=== PATIENT | male | born 1950 | race Caucasian/White ===

== ENCOUNTER 2022-06-27 16:17 | Emergency (ER) | payer MEDICARE, MEDICAID, SELFPAY ==
[2022-06-27] VITALS (17 sets, daily range): BP systolic 84–115; BP diastolic 50–76; PULSE 84–98; RESP 12–33; TEMP 36.1; O2SAT 95–99; BMI 28.0
--- NOTE | 2022-06-27 16:39 | DI.RAD.S_ITS ---
PROCEDURE: XR CHEST 1V INDICATIONS: chest pain TECHNIQUE: One view of the chest was acquired. COMPARISON: None. FINDINGS: Surgical changes and devices: None. Lungs and pleura: On this semiupright portable chest examination, no large pneumothorax or large pleural effusions are seen. No focal infiltrates are seen. Low lung volumes are noted. This causes a crowded appearance to the lung markings and limits evaluation. Mediastinum: Mediastinal contours appear normal. Heart size is normal. Atherosclerotic calcification of the aortic arch is noted. Bones and chest wall: No suspicious bony lesions. Age-appropriate bony degenerative changes are seen. Overlying soft tissues appear unremarkable. IMPRESSION: Low lung volumes, without an acute abnormality identified. Dictated by: Michael Centeno M.D. on 06/27/2022 at 16:05 Approved by: Michael Centeno M.D. on 06/27/2022 at 16:05
--- NOTE | 2022-06-27 16:39 | DI.CT.S_ITS ---
PROCEDURE: CT ANGIO HEAD AND NECK INDICATIONS: dizzy TECHNIQUE: Noncontrast images were performed earlier in the day and not repeated. After the administration of intravenous contrast, 1 mm thick sections acquired from the aortic arch through the [place]. Post-contrast 4.5 mm thick sections then re-acquired from the foramen magnum to the vertex. 3-dimensional cfqsfpk-xoyuawkvb-uthkfktcuq (MIP) and/or volume rendering reformats were acquired of the central intracranial vasculature and neck separately. For radiation dose reduction, the following was used: automated exposure control, adjustment of mA and/or kV according to patient size. COMPARISON: [facility], CT, CT HEAD/BRAIN WO CON, 06/27/2022, 16:44. [facility], CR, XR CHEST 1V, 06/27/2022, 16:39. FINDINGS: Image quality: Excellent. BRAIN: CSF spaces: Ventricles are normal in size and shape. Basal cisterns are patent. No extra-axial fluid collections. Brain: No midline shift. No intracranial bleeds or masses. Ravi-white matter interface appears intact. Skull and face: Calvarium and facial bones appear intact, without suspicious lesions. Orbits appear normal. Sinuses: Sinuses and mastoids are clear. HEAD CT ANGIOGRAPHY: Anterior circulation: Intracranial internal carotid arteries are normal in size and flow. The flow within the paired anterior cerebral arteries is normal and symmetric. The flow within the middle cerebral arteries is normal and symmetric. The anterior communicating artery is seen. No aneurysms are seen. Posterior circulation: Note is made of bilateral type origins of the posterior cerebral arteries, with an associated diminutive basilar artery. The flow within the posterior cerebral arteries is normal and symmetric. The left V4 segment is within normal limits. The right V4 segment largely terminates in the right posterior inferior cerebellar artery. No aneurysms are seen. NECK CT ANGIOGRAPHY: Carotid system: The great vessels demonstrate a conventional anatomy as they arise from the aortic arch. The origins of the common carotid arteries appear patent. The common carotid arteries demonstrate normal caliber and courses. The bifurcation regions demonstrate atherosclerotic irregularity and calcification, with 50-60% narrowing seen on each side. The more distal internal carotid arteries demonstrate normal course and caliber. Posterior circulation: The origins of the vertebral arteries both appear widely patent. The more superior extracranial portions of both vertebral arteries also demonstrate normal courses and calibers. They join to form a normal appearing basilar artery. Soft tissues: Visualized neck soft tissues demonstrate no suspicious abnormalities. Bones: No suspicious bony lesions. Visualized cervical spine appears normally aligned. At least moderate cervical spine degenerative change can be seen, with moderate to severe disc space narrowing at C5-C6 and C6-C7, with milder degenerative changes seen elsewhere. IMPRESSION: No acute abnormality is identified. Focal calcification can be seen involving the carotid bifurcation regions, with 50-60% narrowing seen on each side. Additional findings: Ggtmxn-iv-Kktwdf developmental anomalies At least moderate cervical spine degenerative change Any quantitative measurements of stenosis were performed using NASCET criteria. Dictated by: Michael Centeno M.D. on 06/27/2022 at 16:10 Approved by: Michael Centeno M.D. on 06/27/2022 at 16:13
--- NOTE | 2022-06-27 16:39 | DI.CT.S_ITS ---
PROCEDURE: CT HEAD/BRAIN WO CON INDICATIONS: dizzy TECHNIQUE: Noncontrast 4.5 mm thick angled axial sections acquired from the foramen magnum to the vertex, with coronal and sagittal reformats. For radiation dose reduction, the following was used: automated exposure control, adjustment of mA and/or kV according to patient size. COMPARISON: [facility], CT, CT ANGIO HEAD AND NECK, 06/27/2022, 16:44. [facility], CR, XR CHEST 1V, 06/27/2022, 16:39. FINDINGS: Image quality: Mild streak artifact can be seen through the skull base. CSF spaces: Basal cisterns are patent. No extra-axial fluid collections. The ventricles are symmetric in size and shape. Brain: No intracranial bleeds or masses. There is cerebral volume loss for age, with resultant ventricular and sulcal prominence. There are periventricular and deep white matter chronic small vessel ischemic changes. There is intracranial internal carotid artery atherosclerosis. Skull and face: Calvarium and visualized facial bones appear intact, without suspicious lesions. Sinuses: Visualized sinuses and mastoids are clear. IMPRESSION: Noncontrast head CT within normal limits for age, without a cause of dizziness observed. Dictated by: Michael Centeno M.D. on 06/27/2022 at 16:08 Approved by: Michael Centeno M.D. on 06/27/2022 at 16:09
[2022-06-27] MEDS: SODIUM CHLORIDE 0.9% 1,000 ML 1000 ML IV ×2 (16:42→18:18)
[2022-06-27 16:52] LABS: Add Manual Diff / Slide Review NO; Basophils Absolute Auto 100 /uL (0-100); Eosinophils Absolute Auto 200 /uL (0-450); Eosinophils Percent Auto 2.1 % (2-4); Hematocrit 34.3 % (41-53); Hemoglobin 11.5 g/dL (13.5-17.5); Lymphocytes Absolute Auto 2500 /uL (1100-4500); Lymphocytes Percent Auto 28.4 % (25-40); Mean Corpuscular HGB Conc 33.5 % (30-36); Mean Corpuscular Hemoglobin 29.4 PG (26-34); Mean Corpuscular Volume 87.6 fL (80-100); Monocytes Absolute Auto 800 /uL (0-900); Monocytes Percent Auto 9.1 % (3-14); Neutrophils Absolute Auto 5100 /uL (1500-7000); Neutrophils Percent Auto 59.4 % (50-75); Platelet Count 256 X10^3/uL (150-400); Red Blood Cell Count 3.92 X10^6/uL (4.5-5.9); Red Cell Distribution Width 15.4 % (11.6-14.8); White Blood Cell Count 8.6 X10^3/uL (4.5-11.0)
[2022-06-27 16:55] LABS: INR 1.2 (0.9-1.3); Prothrombin Time 13.3 SECONDS (10.1-12.7)
[2022-06-27 16:58] LABS: PTT Partial Thromboplastin Tim 31 SECONDS (26-36)
[2022-06-27 17:02] LABS: HEMOLYSIS < 15 (0-50)
[2022-06-27 17:03] LABS: Alanine Aminotransferase 44 IU/L (<50); Albumin 3.9 g/dL (3.5-5.0); Alkaline Phosphatase 131 U/L (38-126); Aspartate Aminotransferase 40 IU/L (17-59); BUN Creatinine Ratio 12.7 (6-22); Bilirubin Total 0.4 mg/dL (0.2-1.3); Blood Urea Nitrogen 20 mg/dL (9-20); Calcium 8.9 mg/dL (8.4-10.2); Carbon Dioxide 24 mmol/L (22-32); Chloride 91 mmol/L (98-107); Creatine Kinase 50 U/L (55-170); Estimated Glomerular Filt Rate 47 mL/min (>60); Ethanol (ETOH) < 10 mg/dL; Globulin 3.9 g/dL (1.7-4.1); Glucose 441 mg/dL (80-110); Lipase 161 U/L (23-300); Magnesium 1.4 mg/dL (1.6-2.3); Sodium 128 mmol/L (137-145); Total Protein 7.8 g/dL (6.3-8.2)
[2022-06-27 17:07] LABS: COVID19 -Nasal RAPID Negative (Negative)
[2022-06-27 17:14] LABS: Troponin I 0.024 ng/mL (0.01-0.034)
--- NOTE | 2022-06-27 17:26 | ED_ITS ---
HPI - Syncope General Chief Complaint: Dizziness Stated Complaint: Dizziness, blurred vision, weakness Time Seen by Provider: 06/27/22 16:39 Source: patient and family Mode of arrival: Family Vehicle Limitations: no limitations History of Present Illness HPI narrative: Patient is a 72-year-old male history of diabetes, coronary artery disease on Eliquis, hypertension, chronic neck pain presenting today after near syncopal episode and severe neck pain. He was at a birthday constitution party at a pizza place when he had sudden onset of neck spasming he says the only way to get neck to stop his if he lays flat and waits for it to release. So he laid on the floor in the restaurant. However when he got up he was feeling like he could not see and was a little lightheaded. He was driven here by POV initially found to be slightly hypotensive. He has no focal deficits he is making jokes. He is no chest pain palpitations or shortness of breath. Still complaining of some mild neck pain. No blurry vision. Daughter at bedside she reports that recently a lot of his medications were changed at his most recent PCP office. This week he is not felt quite right but she thought it was getting use to new medications and doses. He apparently had some sort of cardiac event in the fall he was seen evaluated by cardiology who reports that there is nothing for them to do. So he is on Eliquis. Related Data Allergies Allergy/AdvReac Type Severity Reaction Status Date / Time No Known Drug Allergies Allergy Verified 06/27/22 16:39 Review of Systems Review of Systems ROS Unobtainable: All systems reviewed & are unremarkable except as noted in HPI and below Patient History Social History Smoking Status: Former smoker Smoking Status: Former smoker tobacco type: cigarettes alcohol intake frequency: 0-2 drinks per day Substance Use Type: does not use Exam Initial Vital Signs Initial Vital Signs: Vital Signs Temperature 97.0 F L 06/27/22 16:31 Pulse Rate 91 H 06/27/22 16:31 Respiratory Rate 20 06/27/22 16:31 Blood Pressure 84/52 L 06/27/22 16:31 Pulse Oximetry 96 06/27/22 16:31 Oxygen Delivery Method Room Air 06/27/22 16:31 GENERAL: Alert pleasant 72-year-old male and in no acute distress. HEENT: Head atraumatic,EOMI, pupils reactive, face symmetric, moist mucous membranes CARDIOVASCULAR: Regular rate and rhythm without murmurs, rubs or gallops. RESPIRATORY: Breath sounds equal bilaterally, no wheezes rales or rhonchi. ABDOMEN: Soft, nontender. Normoactive bowel sounds all 4 quadrants. No guarding or rebound. EXTREMITIES: Normal range of motion, no clubbing or edema. Neurovascularly intact NEUROLOGICAL: Alert and oriented x4.Normal gait and speech. Cranial nerves II through XII grossly intact. Good htwhzu-ul-cmpg, good yyle-bf-odig, strength equal bilaterally, no dysarthria or aphasia, sensation in tact to soft touch bilaterally, no visual changes, no facial droop SKIN: Warm, dry, no laceration, no petechiae, no rashes or lesions. Scores NIH Stroke Scale Level of Conciousness: Alert, keenly responsive Ask month/age: Answers both questions correctly. Open/close eyes, close hand: Performs both tasks correctly Best gaze horizontal: Normal Visual fernandez: No visual loss Facial palsy: Normal symetrical movement Left arm drift: No drift for full 10 sec Right arm drift: No drift for full 10 sec Left leg drift: No drift for full 5 sec Right leg drift: No drift for full 5 sec Limb ataxia: Absent Sensory on face/arms/legs: Normal, no sensory loss Best language: No aphasia, normal Dysarthria: Normal Extinction or inattention: No abnormality Total NIH Stroke scale score: 0 Course Orders Ordered: ED Orders 06/27/22 16:39 CT angio head and neck Stat CT head/brain wo con Stat XR chest 1V Stat 06/27/22 16:40 COVID19 -Nasal RAPID Stat COVID19 -Nasal RAPID Stat Complete Blood Count AUTO DIFF Stat Comprehensive Metabolic Panel Stat Ethanol (ETOH) Stat Lipase Stat Magnesium Stat PTT Partial Thromboplastin Devendra Stat Prothrombin Time INR Stat Troponin & CK Cardiac Panel Stat Urinalysis and Microscopic Stat Urine Drug Screen, Rapid Stat 06/27/22 16:42 EKG-12 Lead Stat 06/27/22 18:40 Trop I [Troponin I] Stat Discontinued Medications Aspirin (Aspirin 81 Mg Chew Tab) 324 mg PO NOW ONE Stop: 06/27/22 16:40 Last Admin: 06/27/22 16:42 Dose: Not Given Documented By: CTS Sodium Chloride (Normal Saline 0.9%) 1,000 mls @ 1,000 mls/hr IV BOLUS ONE Stop: 06/27/22 17:38 Last Infusion: 06/27/22 18:18 Dose: 0 mls/hr Documented By: Admin: 06/27/22 16:42 Dose: 1,000 mls/hr Documented By: RICCO Sodium Chloride (Normal Saline 0.9%) 1,000 mls @ 1,000 mls/hr IV BOLUS ONE Stop: 06/27/22 19:09 Last Admin: 06/27/22 18:18 Dose: 1,000 mls/hr Documented By: DARRYL Vital Signs Vital signs: Vital Signs - 8 hr 06/27/22 16:31 06/27/22 16:41 06/27/22 16:31 Temperature 97.0 F L Pulse Rate 91 H 90 95 H Respiratory Rate 20 16 Blood Pressure 84/52 L 92/50 L Pulse Oximetry 96 95 96 Oxygen Delivery Method Room Air Room Air 06/27/22 16:33 06/27/22 16:33 06/27/22 16:35 Temperature Pulse Rate 91 H Respiratory Rate 26 H Blood Pressure 84/52 L 92/50 L Pulse Oximetry 95 Oxygen Delivery Method 06/27/22 16:35 06/27/22 16:45 06/27/22 16:45 Temperature Pulse Rate 92 H 90 Respiratory Rate 25 H 26 H Blood Pressure 101/52 L Pulse Oximetry 95 96 Oxygen Delivery Method 06/27/22 16:59 06/27/22 16:59 06/27/22 17:00 Temperature Pulse Rate 94 H Respiratory Rate 15 Blood Pressure 96/50 L 95/53 L Pulse Oximetry 97 Oxygen Delivery Method 06/27/22 17:00 06/27/22 17:15 06/27/22 17:15 Temperature Pulse Rate 91 H 90 Respiratory Rate 12 26 H Blood Pressure 95/56 L Pulse Oximetry 99 99 Oxygen Delivery Method 06/27/22 17:30 06/27/22 17:30 06/27/22 17:45 Temperature Pulse Rate 88 89 Respiratory Rate 22 28 H Blood Pressure 100/58 L Pulse Oximetry 96 97 Oxygen Delivery Method 06/27/22 17:45 06/27/22 18:00 06/27/22 18:00 Temperature Pulse Rate 92 H Respiratory Rate 26 H Blood Pressure 105/59 L 115/76 Pulse Oximetry 99 Oxygen Delivery Method 06/27/22 18:15 06/27/22 18:15 Temperature Pulse Rate 87 Respiratory Rate 24 Blood Pressure 108/64 Pulse Oximetry 98 Oxygen Delivery Method MDM - Syncope Lab Data 06/27/22 16:40 06/27/22 16:40 Labs: Lab Results 06/27/22 06/27/22 06/27/22 Range/Units 16:40 16:40 16:40 WBC 8.6 (4.5-11.0) X10^3/uL RBC 3.92 L (4.5-5.9) X10^6/uL Hgb 11.5 L (13.5-17.5) g/dL Hct 34.3 L (41-53) % MCV 87.6 (80-100) fL MCH 29.4 (26-34) PG MCHC 33.5 (30-36) % RDW 15.4 H (11.6-14.8) % Plt Count 256 (150-400) X10^3/uL Neut % (Auto) 59.4 (50-75) % Lymph % (Auto) 28.4 (25-40) % [place] % (Auto) 9.1 (3-14) % Eos % (Auto) 2.1 (2-4) % Baso % (Auto) 1.0 (0-2) % Neut # (Auto) 5100 (6706-0231) /uL Lymph # (Auto) 2500 (2764-8691) /uL [place] # (Auto) 800 (0-900) /uL Eos # (Auto) 200 (0-450) /uL Baso # (Auto) 100 (0-100) /uL PT 13.3 H (10.1-12.7) SECONDS INR 1.2 (0.9-1.3) APTT 31 (26-36) SECONDS Sodium (137-145) mmol/L Potassium (3.4-5.1) mmol/L Chloride (98-107) mmol/L Carbon Dioxide (22-32) mmol/L BUN (9-20) mg/dL Creatinine (0.66-1.25) mg/dL Estimated GFR (>60) mL/min BUN/Creatinine Ratio (6-22) Glucose (80-110) mg/dL Calcium (8.4-10.2) mg/dL Magnesium (1.6-2.3) mg/dL Total Bilirubin (0.2-1.3) mg/dL AST (17-59) IU/L ALT (<50) IU/L Alkaline Phosphatase (38-126) U/L Total Creatine Kinase (55-170) U/L CK-MB (CK-2) CK-MB (CK-2) Rel Index Troponin I (0.01-0.034) ng/mL Total Protein (6.3-8.2) g/dL Albumin (3.5-5.0) g/dL Globulin (1.7-4.1) g/dL Albumin/Globulin Ratio (1.0-2.8) Lipase (23-300) U/L Ethyl Alcohol ( - 10) mg/dL SARS-CoV-2 (PCR) Negative (Negative) 06/27/22 06/27/22 Range/Units 16:40 18:40 WBC (4.5-11.0) X10^3/uL RBC (4.5-5.9) X10^6/uL Hgb (13.5-17.5) g/dL Hct (41-53) % MCV (80-100) fL MCH (26-34) PG MCHC (30-36) % RDW (11.6-14.8) % Plt Count (150-400) X10^3/uL Neut % (Auto) (50-75) % Lymph % (Auto) (25-40) % [place] % (Auto) (3-14) % Eos % (Auto) (2-4) % Baso % (Auto) (0-2) % Neut # (Auto) (7816-1260) /uL Lymph # (Auto) (5613-9797) /uL [place] # (Auto) (0-900) /uL Eos # (Auto) (0-450) /uL Baso # (Auto) (0-100) /uL PT (10.1-12.7) SECONDS INR (0.9-1.3) APTT (26-36) SECONDS Sodium 128 L (137-145) mmol/L Potassium 5.0 (3.4-5.1) mmol/L Chloride 91 L (98-107) mmol/L Carbon Dioxide 24 (22-32) mmol/L BUN 20 (9-20) mg/dL Creatinine 1.57 H (0.66-1.25) mg/dL Estimated GFR 47 L (>60) mL/min BUN/Creatinine Ratio 12.7 (6-22) Glucose 441 H (80-110) mg/dL Calcium 8.9 (8.4-10.2) mg/dL Magnesium 1.4 L (1.6-2.3) mg/dL Total Bilirubin 0.4 (0.2-1.3) mg/dL AST 40 (17-59) IU/L ALT 44 (<50) IU/L Alkaline Phosphatase 131 H (38-126) U/L Total Creatine Kinase 50 L (55-170) U/L CK-MB (CK-2) TNP CK-MB (CK-2) Rel Index TNP Troponin I 0.024 0.018 (0.01-0.034) ng/mL Total Protein 7.8 (6.3-8.2) g/dL Albumin 3.9 (3.5-5.0) g/dL Globulin 3.9 (1.7-4.1) g/dL Albumin/Globulin Ratio 1.0 (1.0-2.8) Lipase 161 (23-300) U/L Ethyl Alcohol < 10 ( - 10) mg/dL SARS-CoV-2 (PCR) (Negative) Point of Care Testing Glucose POC 436 Urine Dip Bedside Urine Glucose 1000 mg/dl Bedside Urine Bilirubin - Negative Bedside Urine Ketone - Negative Urine Specific [place] 1.010 Bedside Urine Occult Blood - Negative Bedside Urine pH 6.0 Bedside Urine Protein - Negative Bedside Urine Urobilinogen - Negative Bedside Urine Nitrite - Negative Bedside Urine Leukocytes - Negative Esterase Imaging Data Chest x-ray: Radiologist's Impression: PROCEDURE:? XR CHEST 1V ? INDICATIONS:? chest pain ? TECHNIQUE:? One view of the chest was acquired.? ? COMPARISON:? None. ? FINDINGS:? ? Surgical changes and devices:? None.? ? Lungs and pleura:? On this semiupright portable chest examination, no large pneumothorax or large pleural effusions are seen.? No focal infiltrates are seen.? Low lung volumes are noted. This causes a crowded appearance to the lung markings and limits evaluation.? ? Mediastinum:? Mediastinal contours appear normal.? Heart size is normal.? Atherosclerotic calcification of the aortic arch is noted.? ? Bones and chest wall:? No suspicious bony lesions.? Age-appropriate bony degenerative changes are seen. ? Overlying soft tissues appear unremarkable.? IMPRESSION:? Low lung volumes, without an acute abnormality identified. ? ? Dictated by: Michael Centeno M.D. on 06/27/2022 at 16:05 ? ? Approved by: Michael Centeno M.D. on 06/27/2022 at 16:05 ? CT scan - head: Radiologist's Impression: PROCEDURE:? CT HEAD/BRAIN WO CON ? INDICATIONS:? dizzy ? TECHNIQUE:? Noncontrast 4.5 mm thick angled axial sections acquired from the foramen magnum to the vertex, with coronal and sagittal reformats.? For radiation dose reduction, the following was used:? automated exposure control, adjustment of mA and/or kV according to patient size.? ? COMPARISON:? [facility], CT, CT ANGIO HEAD AND NECK, 06/27/2022, 16:44.? [facility], CR, XR CHEST 1V, 06/27/2022, 16:39. ? FINDINGS:? Image quality:? Mild streak artifact can be seen through the skull base. ? CSF spaces:? Basal cisterns are patent.? No extra-axial fluid collections.? The ventricles are symmetric in size and shape.? ? Brain:? No intracranial bleeds or masses.? There is cerebral volume loss for age, with resultant ventricular and sulcal prominence.? There are periventricular and deep white matter chronic small vessel ischemic changes.? There is intracranial internal carotid artery atherosclerosis.? ? Skull and face:? Calvarium and visualized facial bones appear intact, without suspicious lesions.? ? Sinuses:? Visualized sinuses and mastoids are clear.? ? ? IMPRESSION:? Noncontrast head CT within normal limits for age, without a cause of dizziness observed. ? ? Dictated by: Michael Centeno M.D. on 06/27/2022 at 16:08 ? ? CTA - brain/neck: Radiologist's Impression: PROCEDURE:? CT ANGIO HEAD AND NECK ? INDICATIONS:? dizzy ? TECHNIQUE:? Noncontrast images were performed earlier in the day and not repeated.? ? After the administration of intravenous contrast, 1 mm thick sections acquired from the aortic arch through the [place].? Post-contrast 4.5 mm thick sections then re- acquired from the foramen magnum to the vertex.? 3-dimensional nplhdlg-rtsrdiiyg-toeoofejhe (MIP) and/or volume rendering reformats were acquired of the central intracranial vasculature and neck separately. For radiation dose reduction, the following was used:? automated exposure control, adjustment of mA and/or kV according to patient size.? ? COMPARISON:? [facility], CT, CT HEAD/BRAIN WO CON, 06/27/2022, 16:44.? [facility], CR, XR CHEST 1V, 06/27/2022, 16:39. ? FINDINGS:? Image quality:? Excellent.? ? BRAIN:? CSF spaces:? Ventricles are normal in size and shape.? Basal cisterns are patent.? No extra-axial fluid collections.? ? Brain:? No midline shift.? No intracranial bleeds or masses.? Ravi-white matter interface appears intact.? ? Skull and face:? Calvarium and facial bones appear intact, without suspicious lesions.? Orbits appear normal.? ? Sinuses:? Sinuses and mastoids are clear.? ? HEAD CT ANGIOGRAPHY:? Anterior circulation:? Intracranial internal carotid arteries are normal in size and flow.? The flow within the paired anterior cerebral arteries is normal and symmetric.? The flow within the middle cerebral arteries is normal and symmetric.? The anterior communicating artery is seen.? No aneurysms are seen.? ? Posterior circulation:? Note is made of bilateral type origins of the posterior cerebral arteries, with an associated diminutive basilar artery.? The flow wit hin the posterior cerebral arteries is normal and symmetric.? The left V4 segment is within normal limits.? The right V4 segment largely terminates in the right posterior inferior cerebellar artery.? No aneurysms are seen.? ? NECK CT ANGIOGRAPHY:? Carotid system:? The great vessels demonstrate a conventional anatomy as they arise from the aortic arch.? The origins of the common carotid arteries appear patent.? The common carotid arteries demonstrate normal caliber and courses.? The bifurcation r egions demonstrate atherosclerotic irregularity and calcification, with 50-60% narrowing seen on each side. The more distal internal carotid arteries demonstrate normal course and caliber.? ? Posterior circulation:? The origins of the vertebral arteries both appear widely patent.? The more superior extracranial portions of both vertebral arteries also demonstrate normal courses and calibers.? They join to form a normal appearing basilar artery.? ? Soft tissues:? Visualized neck soft tissues demonstrate no suspicious abnormalities.? ? Bones:? No suspicious bony lesions.? Visualized cervical spine appears normally aligned.? At least moderate cervical spine degenerative change can be seen, with moderate to severe disc space narrowing at C5-C6 and C6-C7, with milder degenerative changes seen e lsewhere. ? ? IMPRESSION:? No acute abnormality is identified. ? Focal calcification can be seen involving the carotid bifurcation regions, with 50-60% narrowing seen on each side. ? ? ? Additional findings:? Uemrkz-rc-Enkogz developmental anomalies At least moderate cervical spine degenerative change ? Any quantitative measurements of stenosis were performed using NASCET criteria.? ? ? Dictated by: Michael Centeno M.D. on 06/27/2022 at 16:10 ? ? Approved by: Michael Centeno M.D. on 06/27/2022 at 16:13 ? ECG Data Interpretation: Sinus rhythm rate 90 KS interval 150 QRS [address] changes Q-waves noted in lead 3 and AVF without significant changes and no priors to compare MDM Narrative Medical decision making narrative: Patient is a 72-year-old male who presents with acute on chronic neck pain some dizziness and a near syncopal episode. He is initially found to be hypotensive which improved with fluids. Sodium is found to be 128 but corrects with for a glucose of 441, possible stress-induced versus uncontrolled diabetes, he has an ion gap 13 no evidence of DKA, mild elevation of creatinine of 1.57 potassium is 5.0. Patient's blood pressure improved with fluids. Head CT CT angio and chest x-ray are all negative. Patient has 2- troponins no EKG changes. Daughter reports that she checks on him regularly they actually have an appointment for more blood work. At this times it seems as though patient had a neck spasm which she gets regularly and then he was hypotensive with a near vasovagal episode. He is ambulatory in the ED without any issue. There is no need for admission. Discharge Plan Departure Patient Disposition: Home Clinical Impression: Vaso-vagal reaction, Chronic neck pain, Acute hyperglycemia Instructions: DI for Syncope in Adults (Fainting), DI for Diabetes Type 2, DI for Chronic Neck Pain Activity Restrictions/Additional Instructions: *You have been diagnosed with acute on chronic neck pain, near syncopal episode *What to do: At this time please follow-up with your PCP her medications have recently been adjusted your glucose is a little bit elevated please continue to monitor it at home *Continue to take medications as directed *Follow up with your primary care provider in 2-3 days or call [phone] *Return to ER if you should have passing out chest pain weakness numbness tingling slurring of speech or any new, worsening or concerning symptoms Stand Alone Forms: Patient Portal/API
[2022-06-27 19:12] LABS: Troponin I 0.018 ng/mL (0.01-0.034)
--- NOTE | 2022-06-27 19:37 | PC.NURSE ---
Ambulated without difficulty, able to speak in complete sentences while ambulating.
== END 2022-06-27 19:55 | disposition home or self-care (01) ==
PROVIDERS: Emergency Provider Emergency Medicine
DX: R55 Syncope and collapse (principal); M54.2 Cervicalgia; R07.9 Chest pain, unspecified; E11.65 Type 2 diabetes mellitus with hyperglycemia; Z20.822 Contact with and (suspected) exposure to COVID-19
CPT/HCPCS: 36415; 70450; 70496; 70498; 71045; 80053; 80320; 81003; 82550; 82962; 83690; 83735; 84484; 85025; 85610; 85730; 87635; 93005; 96360; 96361; 99284; C9803; Q9967

== ENCOUNTER → 2023-04-08 12:52 | Outpatient (CLI) | payer MEDICARE, MEDICAID, SELFPAY ==
[2023-04-08 14:05] LABS: BUN Creatinine Ratio 14.4 (6-22); Blood Urea Nitrogen 24 mg/dL (9-20); Calcium 9.7 mg/dL (8.4-10.2); Carbon Dioxide 24 mmol/L (22-32); Chloride 95 mmol/L (98-107); Estimated Glomerular Filt Rate 44 mL/min (>60); Glucose 423 mg/dL (80-110); HEMOLYSIS < 15 (0-50); Potassium 4.6 mmol/L (3.4-5.1); Sodium 132 mmol/L (137-145)
== END ==
PROVIDERS: PCP Physician Assistant; Referring Provider Internal Medicine Cardiovascular Disease; Visit Provider Internal Medicine Cardiovascular Disease
DX: I50.20 Unspecified systolic (congestive) heart failure (principal)
CPT/HCPCS: 36415; 80048

== ENCOUNTER → 2023-08-30 10:10 | Outpatient (CLI) | payer MEDICARE, MEDICAID, SELFPAY ==
--- NOTE | 2023-08-30 10:13 | DI.RAD.S_ITS ---
PROCEDURE: XR HIP W PEL IF DONE BILAT 2V INDICATIONS: HIP PAIN TECHNIQUE: AP pelvis with lateral view(s) of the both hip(s). COMPARISON: [facility], CT, CT ABDOMEN PELVIS WITH CONTRAST, 01/02/2023, 8:43. FINDINGS: Bones: 3 screws spanning the right femoral neck. Prior fracture of the right femoral neck. No acute fractures or dislocations. Pelvic ring appears intact. No suspicious bony lesions. Soft tissues: Right hip skin staple line. The visualized bowel gas pattern is normal. No suspicious soft tissue calcifications. IMPRESSION: Prior right hip fracture status post screw fixation. Mild bilateral hip DJD. Dictated by: Devan Bhagat M.D. on 08/30/2023 at 15:07 Approved by: Devan Bhagat M.D. on 08/30/2023 at 15:10
== END ==
PROVIDERS: PCP Physician Assistant; Referring Provider Orthopaedic Surgery; Visit Provider Orthopaedic Surgery
DX: M25.551 Pain in right hip (principal); M16.0 Bilateral primary osteoarthritis of hip; Z87.81 Personal history of (healed) traumatic fracture
CPT/HCPCS: 73521

== ENCOUNTER 2023-09-08 11:52 | Emergency (ER) | payer MEDICARE, MEDICAID, SELFPAY ==
[2023-09-08] VITALS (19 sets, daily range): BP systolic 124–162; BP diastolic 63–86; PULSE 77–100; RESP 18–27; TEMP 36.4; O2SAT 78–99; BMI 23.8
--- NOTE | 2023-09-08 11:55 | ED_ITS ---
HPI - Abdominal Pain General Chief Complaint: Abdominal Pain Stated Complaint: abd pain L flank pain Time Seen by Provider: 09/08/23 11:55 History of Present Illness HPI narrative: 73-[facility] from recent hip replacement surgery, had sudden onset of left flank pain 845 this morning, no injury trauma new activities. No fevers or chills. He feels nauseated, has not had emesis. He was transferred by EMS, given no meds in route, no IV in route. He denies any recent diarrhea, no black or red stools. Last bowel movement earlier this morning unremarkable. No history of known kidney stones. No dysuria or frequency of urination. No history of colitis or diverticulitis. Related Data Previous Rx's Medication Instructions Recorded cefdinir 300 mg capsule 300 mg PO BID 10 days #20 caps 09/08/23 Allergies Allergy/AdvReac Type Severity Reaction Status Date / Time No Known Drug Allergies Allergy Verified 06/27/22 16:39 Patient History Social History Smoking Status: Former smoker Smoking Status: Former smoker tobacco type: cigarettes alcohol intake frequency: 0-2 drinks per day Substance Use Type: does not use Exam Narrative Exam Narrative: GENERAL: Well-developed patient, in mild distress. HEAD: Atraumatic. Normocephalic. EYES: Pupils equal round and reactive. Extraocular motions intact. No scleral icterus. No injection or drainage. ENT: Nose without bleeding, purulent drainage. Throat without erythema, tonsillar hypertrophy or exudate. Airway patent. NECK: Trachea midline. Non tender CARDIOVASCULAR: Regular rate and rhythm without murmurs, gallops, or rubs. RESPIRATORY: Clear to auscultation. Breath sounds equal bilaterally. No wheezes, rales, or rhonchi. GASTROINTESTINAL: Abdomen soft, non-tender, nondistended. Some mild tenderness left mid and lower quadrant. No guarding or rebound tenderness, nonrigid. EXTREMITIES: No edema or joint tenderness. BACK: Nontender without deformity or crepitance. No flank tenderness. NEURO: AOx3. No gross motor neuro deficits. SKIN: No rash or erythema of visible areas Initial Vital Signs Initial Vital Signs: Vital Signs Pulse Rate 81 09/08/23 11:55 Course Orders Ordered: ED Orders 09/08/23 14:56 Blood Culture Stat Discontinued Medications Diphenhydramine HCl (Diphenhydramine 50 Mg/Ml Vial) 25 mg IV NOW ONE Stop: 09/08/23 15:32 Last Admin: 09/08/23 15:46 Dose: 25 mg Documented By: ARMAAN Hydromorphone HCl (Hydromorphone 0.5 Mg Inj) 0.5 mg IV NOW ONE Stop: 09/08/23 12:06 Last Admin: 09/08/23 12:15 Dose: 0.5 mg Documented By: ARMAAN Hydromorphone HCl (Hydromorphone 0.5 Mg Inj) 0.5 mg IV NOW ONE Stop: 09/08/23 13:32 Last Admin: 09/08/23 13:44 Dose: 0.5 mg Documented By: DANIELITO Sodium Chloride (Normal Saline 0.9%) 500 mls @ 1,000 mls/hr IV BOLUS ONE Stop: 09/08/23 12:33 Last Infusion: 09/08/23 13:09 Dose: Infused Documented By: Admin: 09/08/23 12:16 Dose: 1,000 mls/hr Documented By: ARMAAN Ceftriaxone Sodium 1,000 mg/ (Sodium Chloride) 100 mls @ 200 mls/hr IV NOW ONE Stop: 09/08/23 14:39 Last Infusion: 09/08/23 15:38 Dose: Infused Documented By: Admin: 09/08/23 15:03 Dose: 200 mls/hr Documented By: ARMAAN Ketorolac Tromethamine (Ketorolac 30 Mg/Ml Vial) 15 mg IV NOW ONE Stop: 09/08/23 14:27 Last Admin: 09/08/23 14:36 Dose: Not Given Documented By: ARMAAN Metoclopramide HCl (Metoclopramide 10 Mg/2 Ml Inj) 10 mg IV NOW ONE Stop: 09/08/23 15:32 Last Admin: 09/08/23 15:46 Dose: 10 mg Documented By: ARMAAN Ondansetron HCl (Ondansetron 4 Mg/2 Ml Inj) 4 mg IV NOW PRN PRN Reason: Nausea And Vomiting Last Admin: 09/08/23 14:36 Dose: 4 mg Documented By: Admin: 09/08/23 12:02 Dose: 4 mg Documented By: DANIELITO Tramadol HCl (Tramadol 50 Mg Prepack) 1 bottle MISC DIRECTED ONE Stop: 09/08/23 17:26 Last Admin: 09/08/23 17:39 Dose: 1 bottle Documented By: ARMAAN Vital Signs Vital signs: Vital Signs - 8 hr 09/08/23 15:00 09/08/23 15:00 09/08/23 15:30 Pulse Rate 78 79 Respiratory Rate 27 H 24 Blood Pressure 133/63 Pulse Oximetry 99 99 Oxygen Delivery Method Room Air Room Air 09/08/23 15:30 09/08/23 16:00 09/08/23 16:00 Pulse Rate 86 Respiratory Rate 23 Blood Pressure 140/77 159/86 H Pulse Oximetry Oxygen Delivery Method 09/08/23 16:30 09/08/23 16:51 09/08/23 17:00 Pulse Rate 88 86 Respiratory Rate 26 H 22 Blood Pressure Pulse Oximetry 91 92 96 Oxygen Delivery Method Room Air Room Air Room Air 09/08/23 17:00 09/08/23 17:07 09/08/23 17:30 Pulse Rate Respiratory Rate Blood Pressure 162/82 H 148/78 H Pulse Oximetry 98 Oxygen Delivery Method Room Air 09/08/23 17:30 Pulse Rate 87 Respiratory Rate 21 Blood Pressure Pulse Oximetry 97 Oxygen Delivery Method Room Air MDM - Abdominal Pain Lab Data Attestation: I reviewed the patient's lab results. 09/08/23 12:05 09/08/23 12:05 Labs: Lab Results 09/08/23 09/08/23 Range/Units 12:05 12:53 WBC 12.7 H (4.5-11.0) X10^3/uL RBC 3.60 L (4.5-5.9) X10^6/uL Hgb 9.2 L (13.5-17.5) g/dL Hct 29.0 L (41-53) % MCV 80.6 (80-100) fL MCH 25.5 L (26-34) PG MCHC 31.7 (30-36) % RDW 18.9 H (11.6-14.8) % Plt Count 339 (150-400) X10^3/uL Neut % (Auto) 67.9 (50-75) % Lymph % (Auto) 19.6 L (25-40) % [place] % (Auto) 11.1 (3-14) % Eos % (Auto) 1.0 L (2-4) % Baso % (Auto) 0.4 (0-2) % Neut # (Auto) 8600 H (9898-1149) /uL Lymph # (Auto) 2500 (8881-8080) /uL [place] # (Auto) 1400 H (0-900) /uL Eos # (Auto) 100 (0-450) /uL Baso # (Auto) 100 (0-100) /uL Sodium 132 L (137-145) mmol/L Potassium 5.4 H (3.4-5.1) mmol/L Chloride 101 (98-107) mmol/L Carbon Dioxide 22 (22-32) mmol/L BUN 29 H (9-20) mg/dL Creatinine 1.72 H (0.66-1.25) mg/dL Estimated GFR 42 L (>60) mL/min BUN/Creatinine Ratio 16.9 (6-22) Glucose 205 H (80-110) mg/dL Calcium 10.0 (8.4-10.2) mg/dL Total Bilirubin 0.5 (0.2-1.3) mg/dL AST 22 (17-59) IU/L ALT 15 (<50) IU/L Alkaline Phosphatase 152 H (38-126) U/L Total Protein 8.9 H (6.3-8.2) g/dL Albumin 4.1 (3.5-5.0) g/dL Globulin 4.8 H (1.7-4.1) g/dL Albumin/Globulin Ratio 0.9 L (1.0-2.8) Lipase 110 (23-300) U/L Urine Color Yellow Urine Appearance Cloudy Urine pH 5.5 (4.5-8.0) Ur Specific [place] 1.010 (1.000-1.035) Urine Protein Trace H (Negative) Urine Glucose (UA) 3+ H (Negative) g/dL Urine Ketones Negative (NEGATIVE) Urine Occult Blood 1+ H (Negative) Urine Nitrate Negative (Negative) Urine Bilirubin Negative (NEGATIVE) Urine Urobilinogen 0.2 (0.2) E.U./dL Ur Leukocyte Esterase 2+ H (NEGATIVE) Urine RBC 0-1/hpf (0-5/HPF) Urine WBC >100/hpf H (0-5/HPF) Ur Squamous Epith Cells 0-1 /hpf (0-5/HPF) Urine Bacteria Occasional (0-1) (None) Ur Culture Indicated? Specimen cultured Vol Urine Centrifuged 10ml (spun) Point of care testing: Urine Dip Bedside Urine Glucose 1000 mg/dl Bedside Urine Bilirubin - Negative Bedside Urine Ketone - Negative Urine Specific [place] 1.015 Bedside Urine Occult Blood ++ Bedside Urine pH 5.5 Bedside Urine Protein +/- 15 Bedside Urine Urobilinogen - Negative Bedside Urine Nitrite - Negative Bedside Urine Leukocytes +++ [address] scan - abdomen/pelvis: Radiologist's Impression: [address] [address] [address] Scan Report Signed Patient: Deondre Patricio MR#: [id number] : 1950 Acct:[id number] Age/Sex: 73 / M Date of Service: 09/08/23 Loc: ED Accession Number: [id number] Procedure: CT kidney ureter bladder (KUB) Ordering Provider: Duke Marie MD PROCEDURE: CT KIDNEY URETER BLADDER (KUB) INDICATIONS: abd pain TECHNIQUE: Axial sections were acquired from the lung bases to the pubic symphysis. Coronal and sagittal reformats were performed. For radiation dose reduction, the following was used: automated exposure control, adjustment of mA and/or kV according to patient size. COMPARISON: None. FINDINGS: Image quality: Diagnostic. Lower Chest: Cardiomegaly. Three-vessel coronary calcifications. URINARY: Right Kidney: No stones or hydronephrosis. Right Ureter: No hydroureter. Left Kidney: No stones. Moderate hydronephrosis. Left Ureter: Moderate hydroureter. Bladder: Normal wall thickness. No stones. ABDOMEN: Liver: Cirrhosis. Gallbladder: No radiopaque gallstones or wall thickening. Biliary ducts: No biliary dilation. Pancreas: No ductal dilation. Spleen: Size is within normal limits. Adrenal Glands: No adrenal nodules. Stomach and Bowel: Normal colonic caliber, without significant wall thickening. Colonic diverticulosis without evidence of diverticulitis. Fecal debris within the small bowel. Peritoneum: No abnormal intraperitoneal fluid. No free air. Ventral Wall: No hernia. Abdominal Nodes: No enlarged retroperitoneal or mesenteric lymph nodes. Vessels: Aorta and inferior vena cava are normal in size. PELVIS: Pelvic Organs: Unremarkable. Pelvic Nodes: Unremarkable. Miscellaneous: No inguinal hernias are seen. Bones: Right femur surgical fixation. Degenerative disc disease of the lumbar spine. IMPRESSION: Moderate left-sided hydronephrosis without obstructing stone visualized. Differential includes recently passed stone or ascending urinary tract infection. Cirrhotic liver morphology. Colonic diverticulosis without evidence of diverticulitis. Fecal debris within the small-bowel, usually indicating small intestinal bacterial overgrowth versus slow transit. Dictated by: Carlos Willett M.D. on 09/08/2023 at 13:22 Approved by: Carlos Willett M.D. on 09/08/2023 at 13:24 ECG Data Attestation: I personally reviewed and interpreted this ECG as follows: Interpretation: Normal sinus rhythm with rate of 89, no obvious ST segment elevation or depression changes. NJ 150, QRS 96, QTC 450. MDM Narrative Medical decision making narrative: 73-year-old male with acute onset left flank pain, no known history of kidney stones, no recent lifting fall or new activities, some mild tenderness left lower quadrant, no dysuria, afebrile, sirs screen negative. Arrived by EMS without treatment or IV EN route. We will give IV Zofran, IV Dilaudid. He fluid bolus. CT KUB/renal protocol. Labs pending including urinalysis. CT abdomen and pelvis. Impressions: ?Moderate left-sided hydro nephrosis without obstructing stone visualized. Differential includes recently passed stone or ascending urinary tract infection. Cirrhotic liver morphology. Colonic diverticulosis without evidence of diverticulitis. Fecal debris in the small bowel, indicating small intestinal bacterial overgrowth versus slow transit. See radiology report Urinalysis is suspicious for infection, IV ceftriaxone initiated. Prescription for cefdinir antibiotic course. Home with family. Tramadol home pack. Avoid NSAIDs for now given elevated creatinine. Critical Care Time Critical Care Time Critical Care Time: Yes Total Critical Care Time: 31 Attestation: The high probability of a clinically significant, sudden or life threatening deterioration of the [abdominopelvic, renal, urologic] system(s) required my full and direct attention, intervention and personal management. The aggregate critical care time was [31] minutes. This time is in addition to time spent performing reported procedures but includes the following: [x] Data Review and interpretation [x] Patient assessment and monitoring of vital signs [x] Documentation [x] Medication orders and management Discharge Plan Departure Patient Disposition: Home Clinical Impression: Urinary tract infection Instructions: DI for Urinary Tract Infection (UTI) Activity Restrictions/Additional Instructions: Left-sided flank discomfort, no fever, CT abdomen and pelvis showed some dilation of the ureter between the left kidney and the bladder, this can be seen with recent passage of a small stone, no stone was noted within the bladder however, this can also be seen with infection. Urinalysis was suspicious for infection, IV antibiotics initiated. Take further oral antibiotics. Take antibiotics as directed. Check your symptoms and exam with your regular doctor on Tuesday. Return to this/nearest emergency department for any change worsening symptoms or any concerns prior Prescriptions: New cefdinir 300 mg capsule 300 mg PO BID 10 Days Qty: 20 0RF Referrals: Sterling Hampton PA-C [Primary Care Provider] - Stand Alone Forms: Patient Portal/API
[2023-09-08] MEDS: ONDANSETRON 4 MG/2 ML INJ IV ×2 (12:02→14:36)
--- NOTE | 2023-09-08 12:04 | DI.CT.S_ITS ---
PROCEDURE: CT KIDNEY URETER BLADDER (KUB) INDICATIONS: abd pain TECHNIQUE: Axial sections were acquired from the lung bases to the pubic symphysis. Coronal and sagittal reformats were performed. For radiation dose reduction, the following was used: automated exposure control, adjustment of mA and/or kV according to patient size. COMPARISON: None. FINDINGS: Image quality: Diagnostic. Lower Chest: Cardiomegaly. Three-vessel coronary calcifications. URINARY: Right Kidney: No stones or hydronephrosis. Right Ureter: No hydroureter. Left Kidney: No stones. Moderate hydronephrosis. Left Ureter: Moderate hydroureter. Bladder: Normal wall thickness. No stones. ABDOMEN: Liver: Cirrhosis. Gallbladder: No radiopaque gallstones or wall thickening. Biliary ducts: No biliary dilation. Pancreas: No ductal dilation. Spleen: Size is within normal limits. Adrenal Glands: No adrenal nodules. Stomach and Bowel: Normal colonic caliber, without significant wall thickening. Colonic diverticulosis without evidence of diverticulitis. Fecal debris within the small bowel. Peritoneum: No abnormal intraperitoneal fluid. No free air. Ventral Wall: No hernia. Abdominal Nodes: No enlarged retroperitoneal or mesenteric lymph nodes. Vessels: Aorta and inferior vena cava are normal in size. PELVIS: Pelvic Organs: Unremarkable. Pelvic Nodes: Unremarkable. Miscellaneous: No inguinal hernias are seen. Bones: Right femur surgical fixation. Degenerative disc disease of the lumbar spine. IMPRESSION: Moderate left-sided hydronephrosis without obstructing stone visualized. Differential includes recently passed stone or ascending urinary tract infection. Cirrhotic liver morphology. Colonic diverticulosis without evidence of diverticulitis. Fecal debris within the small-bowel, usually indicating small intestinal bacterial overgrowth versus slow transit. Dictated by: Carlos Willett M.D. on 09/08/2023 at 13:22 Approved by: Carlos Willett M.D. on 09/08/2023 at 13:24
[2023-09-08 12:14] LABS: Add Manual Diff / Slide Review NO; Basophils Absolute Auto 100 /uL (0-100); Basophils Percent Auto 0.4 % (0-2); Eosinophils Absolute Auto 100 /uL (0-450); Hemoglobin 9.2 g/dL (13.5-17.5); Lymphocytes Absolute Auto 2500 /uL (1100-4500); Lymphocytes Percent Auto 19.6 % (25-40); Mean Corpuscular HGB Conc 31.7 % (30-36); Mean Corpuscular Hemoglobin 25.5 PG (26-34); Mean Corpuscular Volume 80.6 fL (80-100); Monocytes Absolute Auto 1400 /uL (0-900); Monocytes Percent Auto 11.1 % (3-14); Neutrophils Absolute Auto 8600 /uL (1500-7000); Neutrophils Percent Auto 67.9 % (50-75); Platelet Count 339 X10^3/uL (150-400); Red Cell Distribution Width 18.9 % (11.6-14.8); White Blood Cell Count 12.7 X10^3/uL (4.5-11.0)
[2023-09-08] MEDS: HYDROMORPHONE 0.5 MG INJ IV ×2 (12:15→13:44)
[2023-09-08] MEDS: SODIUM CHLORIDE 0.9% 500 ML 1000 ML IV (12:16)
[2023-09-08 12:28] LABS: Alanine Aminotransferase 15 IU/L (<50); Albumin 4.1 g/dL (3.5-5.0); Albumin Globulin Ratio 0.9 (1.0-2.8); Alkaline Phosphatase 152 U/L (38-126); Aspartate Aminotransferase 22 IU/L (17-59); BUN Creatinine Ratio 16.9 (6-22); Bilirubin Total 0.5 mg/dL (0.2-1.3); Blood Urea Nitrogen 29 mg/dL (9-20); Carbon Dioxide 22 mmol/L (22-32); Chloride 101 mmol/L (98-107); Estimated Glomerular Filt Rate 42 mL/min (>60); Globulin 4.8 g/dL (1.7-4.1); Glucose 205 mg/dL (80-110); HEMOLYSIS 21 (0-50); Lipase 110 U/L (23-300); Sodium 132 mmol/L (137-145); Total Protein 8.9 g/dL (6.3-8.2)
[2023-09-08 12:29] LABS: Potassium 5.4 mmol/L (3.4-5.1)
[2023-09-08 14:44] LABS: Appearance Urine UA CLOUDY; Bilirubin Urine UA NEGATIVE (NEGATIVE); Color Urine UA YELLOW; Glucose Urine UA 3+ g/dL (Negative); Ketones Urine UA NEGATIVE (NEGATIVE); Leukocyte Esterase Urine UA 2+ (NEGATIVE); Nitrite Urine UA NEGATIVE (Negative); Occult Blood Urine UA 1+ (Negative); Protein Urine UA TRACE (Negative); Urobilinogen Urine UA 0.2 E.U./dL (0.2); pH Urine UA 5.5 (4.5-8.0)
[2023-09-08 14:53] LABS: Bacteria Urine Occasional (0-1); Culture Indicated Urine Specimen Cultured; RBC Urine 0-1/HPF (0-5/HPF); Squamous Epithelial Cell Urine 0-1 /HPF (0-5/HPF); Urine Volume 10mL (spun); WBC Urine >100/HPF (0-5/HPF)
[2023-09-08] MEDS: cefTRIAXone 1,000 MG in SODIUM CHLORIDE 0.9% 100 ML 200 MG IV (15:03)
[2023-09-08] MEDS: METOCLOPRAMIDE 10 MG/2 ML INJ IV (15:46)
[2023-09-08] MEDS: diphenhydrAMINE 50 MG/ML VIAL 25 MG IV (15:46)
[2023-09-08] MEDS: TRAMADOL 50 MG PREPACK 1 BOTTLE MISC (17:39)
== END 2023-09-08 17:57 | disposition home or self-care (01) ==
PROVIDERS: Emergency Provider Emergency Medicine; PCP Physician Assistant
DX: N39.0 Urinary tract infection, site not specified (principal); R03.0 Elevated blood-pressure reading, without diagnosis of hypertension
CPT/HCPCS: 36415; 74176; 80053; 81001; 81003; 83690; 85025; 87040; 87077; 87086; 87147; 87186; 93005; 96365; 96375; 96376; 99284; 99291; J0696; J1170; J1200; J2405; J2765

== ENCOUNTER → 2023-10-12 10:26 | Outpatient (CLI) | payer MEDICARE, MEDICAID, SELFPAY ==
[2023-10-12 11:26] LABS: Hematocrit 30.1 % (41-53); Hemoglobin 9.8 g/dL (13.5-17.5); Mean Corpuscular HGB Conc 32.6 % (30-36); Mean Corpuscular Hemoglobin 25.9 PG (26-34); Mean Corpuscular Volume 79.5 fL (80-100); Platelet Count 326 X10^3/uL (150-400); Red Blood Cell Count 3.78 X10^6/uL (4.5-5.9); Red Cell Distribution Width 18.4 % (11.6-14.8); White Blood Cell Count 10.1 X10^3/uL (4.5-11.0)
[2023-10-12 12:02] LABS: BUN Creatinine Ratio 14.3 (6-22); Blood Urea Nitrogen 26 mg/dL (9-20); Calcium 9.7 mg/dL (8.4-10.2); Carbon Dioxide 24 mmol/L (22-32); Chloride 103 mmol/L (98-107); Estimated Glomerular Filt Rate 39 mL/min (>60); Glucose 202 mg/dL (80-110); HEMOLYSIS 30 (0-50); Potassium 4.9 mmol/L (3.4-5.1); Sodium 142 mmol/L (137-145)
== END ==
PROVIDERS: PCP Physician Assistant; Referring Provider Internal Medicine Cardiovascular Disease; Visit Provider Internal Medicine Cardiovascular Disease
DX: I50.20 Unspecified systolic (congestive) heart failure (principal)
CPT/HCPCS: 36415; 80048; 85027

== ENCOUNTER 2023-10-13 15:31 | Emergency (ER) | payer MEDICARE, MEDICAID, SELFPAY ==
[2023-10-13] VITALS (20 sets, daily range): BP systolic 81–122; BP diastolic 50–72; PULSE 87–93; RESP 14–24; TEMP 36.6; O2SAT 91–100
--- NOTE | 2023-10-13 16:03 | DI.RAD.S_ITS ---
PROCEDURE: XR THORACIC SPINE 3V INDICATIONS: pain fall TECHNIQUE: 3 views of the thoracic spine were acquired. COMPARISON: None. FINDINGS: Bones: No fractures or dislocations. No suspicious bony lesions. 12 pairs of ribs are noted, and appear intact where visualized. Soft tissues: No paravertebral stripe thickening. IMPRESSION: No acute bony abnormality. Dictated by: Isauro Quintero M.D. on 10/13/2023 at 17:08 Approved by: Isauro Quintero M.D. on 10/13/2023 at 17:08
--- NOTE | 2023-10-13 16:03 | DI.RAD.S_ITS ---
PROCEDURE: XR LUMBAR SPINE 2-3V INDICATIONS: fall TECHNIQUE: 3 views of the lumbar spine were acquired. COMPARISON: None. FINDINGS: Bones: There appear to be 5 non rib-bearing lumbar vertebral bodies as well as a potential transitional lumbosacral vertebra. There is normal bony alignment. No vertebral body compression fractures. Degenerative change. No suspicious bony lesions. Soft tissues: Overlying bowel gas pattern is normal. No suspicious soft tissue calcifications. IMPRESSION: No acute fracture. Dictated by: Isauro Quintero M.D. on 10/13/2023 at 17:06 Approved by: Isauro Quintero M.D. on 10/13/2023 at 17:08
--- NOTE | 2023-10-13 16:14 | DI.RAD.S_ITS ---
PROCEDURE: XR ELBOW LT MIN 3V INDICATIONS: fall- pain TECHNIQUE: 3 views of the elbow were acquired. COMPARISON: None. FINDINGS: Bones: No fractures or dislocations. No suspicious bony lesions. Soft tissues: No elbow joint effusion. No suspicious soft tissue calcifications. IMPRESSION: No acute bony abnormality or significant joint effusion. Dictated by: Isauro Quintero M.D. on 10/13/2023 at 17:08 Approved by: Isauro Quintero M.D. on 10/13/2023 at 17:09
--- NOTE | 2023-10-13 16:18 | PC.NURSE ---
patient was very hypotensive in triage systolic in the 70's, when the patient got to the room they were systolic in the 90's. Adriano was notified and fluids were started.
[2023-10-13 16:54] LABS: Add Manual Diff / Slide Review NO; Basophils Absolute Auto 100 /uL (0-100); Basophils Percent Auto 0.6 % (0-2); Eosinophils Absolute Auto 200 /uL (0-450); Eosinophils Percent Auto 2.5 % (2-4); Hematocrit 28.2 % (41-53); Lactate (Lactic Acid) 3.9 mmol/L (0.7-2.1); Lymphocytes Absolute Auto 2400 /uL (1100-4500); Mean Corpuscular HGB Conc 31.9 % (30-36); Mean Corpuscular Hemoglobin 25.7 PG (26-34); Mean Corpuscular Volume 80.5 fL (80-100); Monocytes Absolute Auto 700 /uL (0-900); Neutrophils Absolute Auto 5800 /uL (1500-7000); Neutrophils Percent Auto 62.9 % (50-75); Platelet Count 314 X10^3/uL (150-400); Red Cell Distribution Width 18.4 % (11.6-14.8); White Blood Cell Count 9.3 X10^3/uL (4.5-11.0)
[2023-10-13 16:55] LABS: Alanine Aminotransferase 16 IU/L (<50); Albumin 4.2 g/dL (3.5-5.0); Albumin Globulin Ratio 0.8 (1.0-2.8); Alkaline Phosphatase 91 U/L (38-126); Aspartate Aminotransferase 28 IU/L (17-59); BUN Creatinine Ratio 14.6 (6-22); Bilirubin Total 0.6 mg/dL (0.2-1.3); Blood Urea Nitrogen 29 mg/dL (9-20); Calcium 9.3 mg/dL (8.4-10.2); Carbon Dioxide 24 mmol/L (22-32); Chloride 102 mmol/L (98-107); Estimated Glomerular Filt Rate 35 mL/min (>60); Globulin 5.1 g/dL (1.7-4.1); Glucose 189 mg/dL (80-110); HEMOLYSIS 33 (0-50); Potassium 5.2 mmol/L (3.4-5.1); Sodium 137 mmol/L (137-145); Total Protein 9.3 g/dL (6.3-8.2)
[2023-10-13 17:17] LABS: Creatine Kinase 49 U/L (55-170)
[2023-10-13] MEDS: SODIUM CHLORIDE 0.9% 2,449.41 ML 816.47 ML IV (17:24)
[2023-10-13 17:30] LABS: Troponin I < 0.012 ng/mL (0.01-0.034)
[2023-10-13 17:35] LABS: Procalcitonin 0.103 ng/mL (<0.5)
[2023-10-13 18:21] LABS: Reflexed Lactate in 2 Hours Y
[2023-10-13 18:23] LABS: Lactate (Lactic Acid) 2.7 mmol/L (0.7-2.1)
[2023-10-13] MEDS: BACITRACIN OINT 0.9 GM PCKT 1 APPLIC TOP (18:46)
--- NOTE | 2023-10-13 18:54 | PC.NURSE ---
listened to the patients lungs after beginning fluid therapy and patient sounds clear throughout all lung fernandez. pt states that he is feeling less fatigued. cleaned and bandaged his left elbow tear and applied bacitracin.
--- NOTE | 2023-10-13 19:17 | ED.FALL ---
HPI - Fall General Chief Complaint: Fall Stated Complaint: Fall, back px, post hip sx 1 month ago, bld thinne Time Seen by Provider: 10/13/23 18:09 Source: patient Mode of arrival: Wheelchair Limitations: no limitations History of Present Illness HPI Narrative: 73-year-old male history of hypertension, dyslipidemia, coronary artery disease with an EF in the 30% range on Eliquis presents after mechanical ground level fall. Patient was using his walker in the driveway caught a crack with the wheals and fell. He was able to get himself up and walked back inside. Took a shower before he presented here in the department. They were concerned he may have injured something. He was noted to be hypotensive. He states he has had issues with his blood pressure ranging up and down and his physicians have been trying to adjust his medications. Last adjustment was towards the end of September. Patient is supposed to see Cardiology this week to follow up regarding this. He denies any headaches, states he did not hit his head, no neck pain, has a little bit of mild thoracic and lower back pain states he is able to move without issue. No chest pain or shortness of breath. No nausea or vomiting. No pelvic pain. Patient had a right hip replacement which has been achy at times but not increased today. He has no other extremity pain. He did have a skin tear on his left elbow. States his tetanus is up-to-date. Patient does take oxycodone twice daily for chronic pain. Related Data Home Medications Medication Instructions Recorded Confirmed atorvastatin 40 mg tablet 40 mg PO DAILY 10/13/23 10/13/23 empagliflozin 10 mg tablet 10 mg PO DAILY 10/13/23 10/13/23 (Jardiance) fluoxetine 10 mg capsule 10 mg PO DAILY 10/13/23 10/13/23 furosemide 20 mg tablet 20 mg PO DAILY 10/13/23 10/13/23 insulin glargine 100 unit/mL (3 17 unit SUBCUT ONCE PM 10/13/23 10/13/23 mL) subcutaneous pen (Lantus Solostar U-100 Insulin) insulin lispro 100 unit/mL SUBCUT 10/13/23 subcutaneous pen (Humalog KwikPen (U-100) Insulin) meclizine 12.5 mg tablet 12.5 mg PO TID PRN Dizziness Or 10/13/23 10/13/23 Vertigo melatonin 5 mg tablet 5 mg PO BEDTIME PRN Sleep 10/13/23 10/13/23 metformin 1,000 mg tablet 1,000 mg PO BID 10/13/23 10/13/23 metoprolol succinate 25 mg 25 mg PO DAILY 10/13/23 10/13/23 tablet,extended release 24 hr milnacipran 50 mg tablet 50 mg PO 10/13/23 nitroglycerin 0.4 mg sublingual 0.4 mg sublingual Q5M PRN Chest 10/13/23 10/13/23 tablet Pain omeprazole 20 mg capsule,delayed 20 mg PO DAILY 10/13/23 10/13/23 release oxycodone 5 mg tablet 5 mg PO DAILY Pain 10/13/23 10/13/23 pramipexole 0.25 mg tablet 0.25 mg PO ONCE PM 10/13/23 10/13/23 rivaroxaban 2.5 mg tablet (Xarelto) 2.5 mg PO BID 10/13/23 10/13/23 sitagliptin phosphate 100 mg 100 mg PO DAILY 10/13/23 10/13/23 tablet (Januvia) spironolactone 25 mg tablet 25 mg PO DAILY 10/13/23 10/13/23 tamsulosin 0.4 mg capsule 0.4 mg PO BID 10/13/23 10/13/23 Previous Rx's Medication Instructions Recorded oxycodone 5 mg tablet 5 mg PO Q6H PRN pain #5 tabs 10/13/23 Allergies Allergy/AdvReac Type Severity Reaction Status Date / Time No Known Drug Allergies Allergy Verified 10/13/23 15:47 Review of Systems Review of Systems ROS Unobtainable: All systems reviewed & are unremarkable except as noted in HPI and below Patient History Social History Smoking Status: Former smoker Smoking Status: Former smoker tobacco type: cigarettes alcohol intake frequency: 0-2 drinks per day Substance Use Type: does not use Exam Narrative Exam Narrative: GEN: Patient appears in mild distress. HEAD: No evidence of trauma, no raccoon/Dixon sign. NECK: Nontender, painless range of motion, trachea midline Negative Nexus criteria, there is no midline line tenderness, distracting injury, altered mental status, neuro deficit, recent EtOH. EYES: PERRLA, EOMI ENT: External inspection normal, trachea is midline, TM's are normal no hemotypanum, Nares are clear, no septal hematoma, no dental or oral injury, airway is normal and with normal occlusion, No bony tenderness RESP: Chest is nontender and has symmetric movement, no ecchymosis, breath sounds are normal no crackles, wheezes or rales CVS: Heart sounds are normal, no murmur noted, No JVD. ABG/GI: Nontender, soft, normal bowel sounds, no distention, no organomegaly, pelvic rock is negative NEURO: Oriented AOx3, neuro is grossly intact, sensation and motor is normal all 4 extremities moving, cranial nerves II through XII are intact, GCS is 15 PSYCH: Normal mood and affect SKIN: Left elbow skin tear, warm and dry, no crepitus and without decubitus BACK: No CVA tenderness, no vertebral tenderness, no step-off's, no crepitus EXT: Atraumatic, hips are nontender, no pedal edema, normal color and temperature, normal range of motion of extremities with normal tendon exam, 2+ pulses in all four extremities Initial Vital Signs Initial Vital Signs: Vital Signs Temperature 98 F 10/13/23 15:42 Pulse Rate 92 H 10/13/23 15:42 Respiratory Rate 18 10/13/23 15:42 Blood Pressure 81/50 L 10/13/23 15:42 Pulse Oximetry 100 10/13/23 15:42 Oxygen Delivery Method Room Air 10/13/23 15:42 Course Orders Ordered: Discontinued Medications Bacitracin (Bacitracin Oint 0.9 Gm Pckt) 1 applic TOP NOW ONE Stop: 10/13/23 18:39 Last Admin: 10/13/23 18:46 Dose: 1 applic Documented By: EDDIE Sodium Chloride (Normal Saline 0.9%) 1,000 mls @ 1,000 mls/hr IV BOLUS ONE Stop: 10/13/23 17:02 Last Admin: 10/13/23 17:26 Dose: Not Given Documented By: THEO Sodium Chloride (Normal Saline 0.9%) 2,449.41 mls @ 816.47 mls/hr 30 ml/kg infuse over 3 hr (2449.41 ml) IV NOW ONE Stop: 10/13/23 20:06 Last Infusion: 10/13/23 20:05 Dose: Infused Documented By: Admin: 10/13/23 17:24 Dose: 816.47 mls/hr Documented By: THEO Vital Signs Vital signs: Vital Signs - 8 hr 10/13/23 15:42 10/13/23 15:45 10/13/23 15:51 Temperature 98 F Pulse Rate 92 H 93 H Respiratory Rate 18 14 Blood Pressure 81/50 L 90/51 L Pulse Oximetry 100 Oxygen Delivery Method Room Air 10/13/23 15:51 10/13/23 16:00 10/13/23 16:00 Temperature Pulse Rate 91 H 90 Respiratory Rate 22 24 Blood Pressure 99/54 L Pulse Oximetry 99 Oxygen Delivery Method 10/13/23 16:15 10/13/23 16:15 10/13/23 16:41 Temperature Pulse Rate 87 88 Respiratory Rate 21 Blood Pressure 100/56 L Pulse Oximetry 100 Oxygen Delivery Method 10/13/23 16:42 10/13/23 16:42 10/13/23 16:45 Temperature Pulse Rate 88 Respiratory Rate 19 Blood Pressure 101/65 103/61 Pulse Oximetry Oxygen Delivery Method 10/13/23 16:45 10/13/23 16:59 10/13/23 17:00 Temperature Pulse Rate 87 88 Respiratory Rate 21 24 Blood Pressure 111/65 Pulse Oximetry 96 93 Oxygen Delivery Method 10/13/23 17:00 10/13/23 17:15 10/13/23 17:15 Temperature Pulse Rate 87 88 Respiratory Rate 17 21 Blood Pressure 120/71 Pulse Oximetry 93 Oxygen Delivery Method 10/13/23 17:30 10/13/23 17:30 10/13/23 17:45 Temperature Pulse Rate 87 88 Respiratory Rate 17 20 Blood Pressure 118/68 Pulse Oximetry 94 91 Oxygen Delivery Method 10/13/23 17:45 10/13/23 18:00 10/13/23 18:00 Temperature Pulse Rate 90 Respiratory Rate 21 Blood Pressure 115/68 108/58 L Pulse Oximetry 97 Oxygen Delivery Method 10/13/23 18:17 10/13/23 18:17 10/13/23 18:30 Temperature Pulse Rate 90 Respiratory Rate Blood Pressure 111/64 120/64 Pulse Oximetry 97 Oxygen Delivery Method 10/13/23 18:30 10/13/23 19:00 10/13/23 19:00 Temperature Pulse Rate 91 H 88 Respiratory Rate 19 21 Blood Pressure 122/62 Pulse Oximetry 97 96 Oxygen Delivery Method 10/13/23 19:16 10/13/23 19:16 Temperature Pulse Rate 87 Respiratory Rate 19 Blood Pressure 109/67 Pulse Oximetry 97 Oxygen Delivery Method MDM - Fall Lab Data 10/13/23 15:50 10/13/23 15:50 Labs: Lab Results 10/13/23 10/13/23 Range/Units 15:50 17:50 WBC 9.3 (4.5-11.0) X10^3/uL RBC 3.50 L (4.5-5.9) X10^6/uL Hgb 9.0 L (13.5-17.5) g/dL Hct 28.2 L (41-53) % MCV 80.5 (80-100) fL MCH 25.7 L (26-34) PG MCHC 31.9 (30-36) % RDW 18.4 H (11.6-14.8) % Plt Count 314 (150-400) X10^3/uL Neut % (Auto) 62.9 (50-75) % Lymph % (Auto) 26.0 (25-40) % Ray % (Auto) 8.0 (3-14) % Eos % (Auto) 2.5 (2-4) % Baso % (Auto) 0.6 (0-2) % Neut # (Auto) 5800 (4335-6075) /uL Lymph # (Auto) 2400 (6505-3279) /uL Ray # (Auto) 700 (0-900) /uL Eos # (Auto) 200 (0-450) /uL Baso # (Auto) 100 (0-100) /uL Sodium 137 (137-145) mmol/L Potassium 5.2 H (3.4-5.1) mmol/L Chloride 102 (98-107) mmol/L Carbon Dioxide 24 (22-32) mmol/L BUN 29 H (9-20) mg/dL Creatinine 1.98 H (0.66-1.25) mg/dL Estimated GFR 35 L (>60) mL/min BUN/Creatinine Ratio 14.6 (6-22) Glucose 189 H (80-110) mg/dL Lactate 3.9 H 2.7 H (0.7-2.1) mmol/L Calcium 9.3 (8.4-10.2) mg/dL Total Bilirubin 0.6 (0.2-1.3) mg/dL AST 28 (17-59) IU/L ALT 16 (<50) IU/L Alkaline Phosphatase 91 (38-126) U/L Total Creatine Kinase 49 L (55-170) U/L Troponin I < 0.012 (0.01-0.034) ng/mL Total Protein 9.3 H (6.3-8.2) g/dL Albumin 4.2 (3.5-5.0) g/dL Globulin 5.1 H (1.7-4.1) g/dL Albumin/Globulin Ratio 0.8 L (1.0-2.8) Procalcitonin 0.103 (<0.5) ng/mL MDM Narrative Medical decision making narrative: White count of 9.3, hemoglobin of 9 which appears similar to prior from September, platelets of 314. Sodium 137 potassium of 5.2, chloride 102, CO2 of 24 BUN 29 creatinine 1.98, 189, lactate of 3.9 and repeats 2, troponin less than 0.02 total CK is 40, protocol 0.013. Patient had a repeat lactate which is trending down words. He states he does not have any lightheadedness or dizziness he has been asymptomatic he does note his blood pressure has been labile. He was following up this week regarding that in particular. He has been ambulating without issue at home as well as here. Patient denies any current back pain. States he did have some initially. Lumbar spine x-ray shows degenerative changes but no acute fracture. Thoracic spine x-ray shows no acute bony abnormality. Elbow x-ray is negative for fracture or dislocation no effusion. Discharge Plan Departure Patient Disposition: Home Clinical Impression: Skin tear of elbow without complication, Fall Instructions: How to Prevent Falls Activity Restrictions/Additional Instructions: I hope you continue to feel improved. You can take your regular oxycodone up to 1 tablet every 6 hours as needed. A prescription was sent to [facility] in [place] for a few extra tablets. This medication can make you sleepy do not drive, perform hazardous activities or make any major decisions while taking it. This medication will make you constipated please take a stool softener once to twice daily until stools are soft and regular. Please return if you have new headaches, dizziness, passing out, new back or neck pain, chest pain or shortness of breath, persistent vomiting, new swelling of your extremities or other new or concerning changes. Prescriptions: New oxycodone 5 mg tablet 5 mg PO Q6H PRN (Reason: pain) Qty: 5 0RF No Action atorvastatin 40 mg tablet 40 mg PO DAILY Xarelto 2.5 mg tablet 2.5 mg PO BID meclizine 12.5 mg Tablet 12.5 mg PO TID PRN (Reason: Dizziness Or Vertigo) spironolactone 25 mg Tablet 25 mg PO DAILY metformin 1,000 mg tablet 1,000 mg PO BID fluoxetine 10 mg capsule 10 mg PO DAILY nitroglycerin 0.4 mg Tablet, Sublingual 0.4 mg SUBLINGUAL Q5M PRN (Reason: Chest Pain) Rx Instructions: do not exceed 3 doses per episode pramipexole 0.25 mg tablet 0.25 mg PO ONCE PM omeprazole 20 mg Capsule,Delayed Release(Dr/Ec) 20 mg PO DAILY furosemide 20 mg Tablet 20 mg PO DAILY metoprolol succinate 25 mg Tablet Extended Release 24 Hr 25 mg PO DAILY oxycodone 5 mg Tablet 5 mg PO DAILY insulin lispro [Humalog KwikPen Insulin] 100 unit/mL insulin pen SUBCUT Patient Comments: INJECT 4 UNITS SUBCUTANEOUSLY ALONG WITH SLIDING SCALE DOSE BEFORE MEALS DAILY. MAX SINGLE DOSE 10 UNITS IF BS GREATER THAN 400. MAXIMUM DAILY DOSE 30 UNITS Januvia 100 mg tablet 100 mg PO DAILY insulin glargine [Lantus Solostar U-100 Insulin] 100 unit/mL (3 mL) insulin pen 17 unit SUBCUT ONCE PM melatonin 5 mg Tablet 5 mg PO BEDTIME PRN (Reason: Sleep) milnacipran 50 mg Tablet 50 mg PO Jardiance 10 mg Tablet 10 mg PO DAILY tamsulosin 0.4 mg Capsule 0.4 mg PO BID Referrals: Sterling Hampton PA-C [Primary Care Provider] - Stand Alone Forms: Patient Portal/API
[2023-10-13 19:48] LABS: Reflexed Lactate in 2 Hours Y
== END 2023-10-13 19:50 | disposition home or self-care (01) ==
PROVIDERS: Emergency Medicine; Emergency Provider Emergency Medicine; PCP Physician Assistant
DX: S51.012A Laceration without foreign body of left elbow, initial encounter (principal); M54.50 Low back pain, unspecified; W18.30XA Fall on same level, unspecified, initial encounter; Z79.899 Other long term (current) drug therapy; Z79.01 Long term (current) use of anticoagulants
CPT/HCPCS: 36415; 72072; 72100; 73080; 80053; 82550; 83605; 84145; 84484; 85025; 87040; 96360; 96361; 99284

== ENCOUNTER → 2024-03-11 09:24 | Outpatient (CLI) | payer MEDICARE, MEDICAID, SELFPAY ==
--- NOTE | 2024-03-11 09:34 | DI.ECHO.S_ITS ---
[place] [facility] : : [address] : : [place] : : [id number] : : Phone: [phone] Echocardiogram Report + + :Name: KAM CR Study Date: 03/11/2024 Height: 70.5 in: :[facility] ReadingLocation: Weight: 184 lb : : Gender: Male BSA: 2.0 m2 : :: 1950 Age: 73 yrs BP: 117/73 mmHg: :Reason For Study: HFrEF : :Ordering Physician: NIDHI, : :RYAN Performed By: Farzaneh Chan : :Referring: RYAN RUIZ : + + Interpretation Summary 1) Normal left ventricular size with mildly reduced systolic function (EF 45- 50%). 2) Normal right ventricular size and function. 3) There is mild mitral regurgitationThere is mild aortic regurgitation. 4) Compared to the echo done 08/03/2022, LVEF has ipmroved from 35-40% to 45-50% on this study. Procedure: A two-dimensional transthoracic echocardiogram with color flow and Doppler was performed. The study quality was technically adequate. Comparison is made with the echocardiogram of 08/03/2022. The patient was in sinus rhythm with heart rates between 78-84 bpm during the exam. Left Ventricle: The left ventricle is normal in size. There is normal left ventricular wall thickness. The ejection fraction is estimated to be 45-50%. There is mild global hypokinesis of the left ventricle. Diastolic parameters suggest a relaxation abnormality of the left ventricle, consistent with probable normal filling pressures. Right Ventricle: The right ventricle is normal in size and function. Atria: The left atrial size is normal. Right atrial size is normal. There is no Doppler evidence for an interatrial shunt. Mitral Valve: The mitral valve leaflets are slightly calcified. There is mild mitral annular calcification. There is mild mitral regurgitation. Aortic Valve: The aortic valve is trileaflet. The aortic valve opens well. There is no aortic valve stenosis. There is mild aortic regurgitation. Tricuspid Valve: The tricuspid valve leaflets are thin and pliable. There is mild tricuspid regurgitation. Right ventricular systolic pressure is estimated to be 22 mmHg plus the clinically estimated CVP which cannot be estimated on this exam. Pulmonic Valve: The pulmonic valve leaflets are thin and pliable; valve motion is normal. There is a trace or physiologic amount of pulmonic regurgitation. Great Vessels: The aortic root is normal size. The dimensions of the ascending aorta are normal. The inferior vena cava was not well visualized. Pericardium/ Pleura There is no pericardial effusion. There is no pleural effusion. MMode/2D Measurements & Calculations LVIDd: 4.9 cm LVOT diam: 2.3 cm LVIDs: 3.6 cm Ao root diam: 3.5 cm FS: 26.7 % asc Aorta Diam: 3.1 cm EPSS: 1.7 cm Ao Arch Diam (Prox Trans): 3.0 cm IVSd: 0.92 cm LVPWd: 0.76 cm LV garcía. diameter/BSA (cm/m^2): 2.4 LV sys. diameter/BSA (cm/m^2): 1.8 LA A2 area: 24.0 cm2 RA long axis: 6.1 cm LA A4 area: 18.9 cm2 RA area: 16.6 cm2 LA length (vol): 6.2 cm RA vol: 38.1 ml LA vol: 62.6 ml RA : 18.8 ml/m2 LA vol index: 30.9 ml/m2 RVD1 (basal): 3.1 cm RVD2 (mid): 3.0 cm TAPSE: 1.7 cm Doppler Measurements & Calculations Ao V2 max: 127.9 cm/sec LVOT Max Howard: 70.1 cm/sec Ao V2 mean: 99.7 cm/sec LV V1 max P.0 mmHg Ao max P.5 mmHg LV V1 VTI: 13.5 cm Ao mean P.1 mmHg KODI(I,D): 2.1 cm2 Ao V2 VTI: 26.9 cm KODI(V,D): 2.3 cm2 sev ratio: 0.50 KODI indexed to BSA (cm^2/m^2): 1.0 AI P1/2t: 1011 msec AI dec slope: 100.4 cm/sec2 MV E max howard: 73.7 cm/sec TR max howard: 234.8 cm/sec MV A max howard: 93.0 cm/sec TR max P.0 mmHg MV E/A: 0.79 PA V2 max: 86.8 cm/sec Med Peak E' Howard: 4.6 cm/sec PA V2 mean: 61.9 cm/sec E/E' med: 15.9 PA mean P.7 mmHg Lat Peak E' Howard: 8.0 cm/sec PA pr(Accel): 43.0 mmHg E/E' lat: 9.2 E/e' average: 12.5 MV dec time: 0.22 sec SV(LVOT): 57.1 ml Reading Physician:07:21 PM
== END ==
PROVIDERS: PCP Physician Assistant; Referring Provider Internal Medicine Cardiovascular Disease; Visit Provider Internal Medicine Cardiovascular Disease
DX: I50.20 Unspecified systolic (congestive) heart failure (principal); I08.3 Combined rheumatic disorders of mitral, aortic and tricuspid valves
CPT/HCPCS: 93306

== ENCOUNTER → 2024-03-12 07:07 | Outpatient (CLI) | payer MEDICARE, MEDICAID, SELFPAY ==
--- NOTE | 2024-03-12 07:08 | DI.MRI.S_ITS ---
PROCEDURE: MR LUMBAR SPINE WO CON INDICATIONS: LUMBAR SPONDYLOSIS TECHNIQUE: Noncontrast sagittal T1 spin echo and T2 fast echo, sagittal STIR, and T2 fast spin echo through the lumbar spine. In cases with scoliosis, additional coronal T2 fast spin echo may be performed. COMPARISON: [facility], CT, CT KIDNEY URETER BLADDER (KUB), 09/08/2023, 12:48. [facility], CR, XR LUMBAR SPINE 2-3V, 10/13/2023, 16:24. [facility], CR, XR THORACIC SPINE 3V, 10/13/2023, 16:24. FINDINGS: Image quality: Excellent. Alignment and Curvature: There is 4 mm anterolisthesis of L5 on S1. L5 pars defect. Bone Marrow: Marrow is of normal overall signal. No acute vertebral body compression fractures. Old wedge deformity at L5. Spinal Cord: Conus medullaris terminates at the L1 level. Visualized cord demonstrates normal signal and size. Paraspinous Soft Tissues: No paravertebral masses. Discs: Multilevel mild disc desiccation. T12-L1: No disc bulge, spinal stenosis or foraminal narrowing. L1-L2: Minimal disc bulge without spinal stenosis. [id number] bilateral foraminal narrowing with facet and ligamentum flavum hypertrophy. L2-L3: Minimal disc bulge without spinal stenosis. Moderate bilateral foraminal narrowing, right greater than left with facet and ligamentum flavum hypertrophy. L3-L4: Minimal disc bulge without spinal stenosis. [id number] bilateral foraminal narrowing with facet and ligamentum flavum hypertrophy. L4-L5: Mild disc bulge including left lateral component. Mild spinal stenosis. Moderate to severe right and severe left foraminal narrowing without nerve root compression. L5-S1: Mild disc bulge without spinal stenosis. Moderate to severe bilateral foraminal narrowing with facet and ligamentum flavum hypertrophy. IMPRESSION: Multilevel disc bulges. 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 Dictated by: Karina Christensen M.D. on 03/12/2024 at 16:06 Approved by: Karina Christensen M.D. on 03/12/2024 at 16:17
[2024-03-12 09:06] LABS: Add Manual Diff / Slide Review NO; Basophils Absolute Auto 100 /uL (0-100); Basophils Percent Auto 0.6 % (0-2); Eosinophils Absolute Auto 300 /uL (0-450); Eosinophils Percent Auto 3.3 % (2-4); Hematocrit 34.9 % (41-53); Hemoglobin 11.5 g/dL (13.5-17.5); Lymphocytes Absolute Auto 2900 /uL (1100-4500); Lymphocytes Percent Auto 32.5 % (25-40); Mean Corpuscular HGB Conc 32.9 % (30-36); Mean Corpuscular Hemoglobin 29.3 PG (26-34); Monocytes Absolute Auto 900 /uL (0-900); Monocytes Percent Auto 10.4 % (3-14); Neutrophils Absolute Auto 4700 /uL (1500-7000); Neutrophils Percent Auto 53.2 % (50-75); Platelet Count 230 X10^3/uL (150-400); Red Blood Cell Count 3.92 X10^6/uL (4.5-5.9); Red Cell Distribution Width 17.7 % (11.6-14.8); White Blood Cell Count 8.9 X10^3/uL (4.5-11.0)
[2024-03-12 09:23] LABS: BUN Creatinine Ratio 15.9 (6-22); Blood Urea Nitrogen 31 mg/dL (9-20); Calcium 9.4 mg/dL (8.4-10.2); Carbon Dioxide 23 mmol/L (22-32); Chloride 107 mmol/L (98-107); Cholesterol 93 mg/dL (140-199); Estimated Glomerular Filt Rate 36 mL/min (>60); Glucose 146 mg/dL (80-110); HDL Cholesterol 45 mg/dL (40-60); HEMOLYSIS < 15 (0-50); LDL Cholesterol Calculated 21 mg/dL (<100); Potassium 4.6 mmol/L (3.4-5.1); Sodium 139 mmol/L (137-145); Triglycerides 137 mg/dL (35-150)
[2024-03-12 09:32] LABS: NT-proBNP (BNP-Adult 18+) 718 pg/mL (<125)
== END ==
PROVIDERS: Internal Medicine Cardiovascular Disease; PCP Physician Assistant; Referring Provider Acupuncturist; Visit Provider Acupuncturist
DX: M47.817 Spondylosis without myelopathy or radiculopathy, lumbosacral region; M48.061 Spinal stenosis, lumbar region without neurogenic claudication; M47.816 Spondylosis without myelopathy or radiculopathy, lumbar region; M48.07 Spinal stenosis, lumbosacral region; M51.369 Other intervertebral disc degeneration, lumbar region without mention of lumbar back pain or lower extremity pain; M51.379 Other intervertebral disc degeneration, lumbosacral region without mention of lumbar back pain or lower extremity pain; I50.20 Unspecified systolic (congestive) heart failure; I25.10 Atherosclerotic heart disease of native coronary artery without angina pectoris
CPT/HCPCS: 36415; 72148; 80048; 80061; 83880; 85025

== ENCOUNTER → 2024-09-12 12:46 | Outpatient (CLI) | payer MEDICARE, MEDICAID, SELFPAY ==
[2024-09-12 13:49] LABS: Add Manual Diff / Slide Review NO; Basophils Absolute Auto 0 /uL (0-100); Basophils Percent Auto 0.4 % (0-2); Eosinophils Absolute Auto 200 /uL (0-450); Eosinophils Percent Auto 3.2 % (2-4); Hematocrit 31.8 % (41-53); Hemoglobin 10.9 g/dL (13.5-17.5); Lymphocytes Absolute Auto 2400 /uL (1100-4500); Lymphocytes Percent Auto 31.5 % (25-40); Mean Corpuscular HGB Conc 34.3 % (30-36); Mean Corpuscular Hemoglobin 31.2 PG (26-34); Mean Corpuscular Volume 90.8 fL (80-100); Monocytes Absolute Auto 800 /uL (0-900); Neutrophils Absolute Auto 4200 /uL (1500-7000); Neutrophils Percent Auto 53.9 % (50-75); Platelet Count 225 X10^3/uL (150-400); Red Cell Distribution Width 15.1 % (11.6-14.8); White Blood Cell Count 7.7 X10^3/uL (4.5-11.0)
[2024-09-12 14:14] LABS: Alanine Aminotransferase 21 IU/L (<50); Albumin 4.2 g/dL (3.5-5.0); Albumin Globulin Ratio 1.2 (1.0-2.8); Alkaline Phosphatase 85 U/L (38-126); Aspartate Aminotransferase 28 IU/L (17-59); Bilirubin Total 0.5 mg/dL (0.2-1.3); Blood Urea Nitrogen 21 mg/dL (9-20); Calcium 9.8 mg/dL (8.4-10.2); Carbon Dioxide 26 mmol/L (22-32); Chloride 104 mmol/L (98-107); Estimated Glomerular Filt Rate 45 mL/min (>60); Globulin 3.6 g/dL (1.7-4.1); Glucose 102 mg/dL (70-99); HEMOLYSIS < 15 (0-50); Potassium 5.4 mmol/L (3.4-5.1); Sodium 140 mmol/L (137-145); Total Protein 7.8 g/dL (6.3-8.2)
== END ==
PROVIDERS: PCP Physician Assistant; Referring Provider Internal Medicine; Visit Provider Internal Medicine
DX: B18.2 Chronic viral hepatitis C (principal)
CPT/HCPCS: 36415; 80053; 85025; 87522